=== PATIENT | female | born 1980 ===

== ENCOUNTER 2018-01-11 17:06 | Emergency (ER) | payer BC ==
[2018-01-11 18:01] VITALS: BMI 37.8
[2018-01-11 18:28] LABS: ALB/GLOB RATIO 0.8 (1.0-2.1); ALBUMIN 2.8 g/dL (3.5-5.0); ALT/SGPT 21 U/L (9-52); AST/SGOT 34 U/L (14-36); BLOOD UREA NITROGEN 14 mg/dl (7-17); CALCIUM 8.9 mg/dL (8.4-10.2); GFR NON-AFRICAN AMERICAN > 60
[2018-01-11 18:33] LABS: BASO % 0.4 % (0.0-2.0); EOS # 0.1 K/uL (0.0-0.7); EOS % 1.7 % (0.0-4.0); HEMOGLOBIN 10.9 g/dL (12.0-16.0); LYMPH # 1.2 K/uL (1.0-4.3); MEAN CELL VOLUME 84.2 fl (81.0-99.0); MEAN CORPUSCULAR HEMOGLOBIN 27.5 pg (27.0-31.0); MEAN CORPUSCULAR HGB CONC 32.7 g/dL (33.0-37.0); MEAN PLATELET VOLUME 9.2 fl (7.2-11.7); MONO # 0.6 K/uL (0.0-0.8); MONO % 10.2 % (0.0-10.0); NEUT # 4.1 K/uL (1.8-7.0); NEUT % 67.7 % (50.0-75.0); NRBC % 0.1 % (0.0-0.0); RBC 3.97 Mil/uL (3.80-5.20); RED CELL DISTRIBUTION WIDTH 16.1 % (11.5-14.5); WHITE BLOOD COUNT 6.1 K/uL (4.8-10.8)
[2018-01-11] MEDS ORDERED: Betamethasone Soluspan 30 mg/5mL Inj Susp IM ONE (20:20)
[2018-01-12 09:50] VITALS: BP 141/75; PULSE 86; RESP 18; TEMP 98; O2SAT 100
== END 2018-01-11 21:20 | disposition home or self-care (01) ==
LOC: H.EROB2 17:06
DX: O26.93 Pregnancy related conditions, unspecified, third trimester (principal); I10 Essential (primary) hypertension; Z3A.29 29 weeks gestation of pregnancy
CPT/HCPCS: 80053; 82550; 82570; 84156; 85025; 96372; 99283; J0702

== ENCOUNTER 2018-01-12 20:24 | Emergency (ER) | payer BC ==
[2018-01-11 18:01] VITALS: BMI 37.8
[2018-01-12] MEDS ORDERED: Betamethasone Soluspan 30 mg/5mL Inj Susp IM ONE (20:40)
[2018-01-12 23:21] LABS: URINE 24 HOUR TOTAL PROTEIN 4587.5 mg/24hr (42-225)
--- NOTE | 2018-01-13 09:37 | OBADHP ---
Datetime: 01/12/2018 23:30 Admit Comment, IP Provider: at 29 weeks and 3 days gestational age crease blood pressure. [place] ent without complaints at this time. Patient denies any headaches, changes in vision, abdominal pain. Patient denies any contractions, vaginal bleeding, leakage of fluids. Patient reports good mov ement. Past medical history presenting with first delivery Past surgical history denies Medications vitamins Obstetrical history 2 Social history denies tobacco, drugs, alcohol Labs: 24 hour urine protein approximately 4500 g protein Assessment: 29 weeks gestational age, mildly elevated blood pressures, elevated total protein in 24-hour urine collection Plan: Admit for observation Plan to repeat labs Continuous heart monitoring Discussed plan and all patient questions answered. IP Hx Assessment: The History has been Reviewed and is Current IP Adm Impression: , intrauterine IP Admit Plan: Admit to unit Datetime: 01/11/2018 17:58 Abdomen - PN: Normal Lungs - PN: Normal Heart - PN: Normal General - PN: Normal Vital Signs Provider: Reviewed IP Chief Complaint: Maternal discomfort; Other EGA AdmitDate IP: 29.1
[2018-01-15 14:26] VITALS: BP 158/92; PULSE 101; RESP 18; TEMP 98.3; O2SAT 99
== END 2018-01-12 21:20 | disposition home or self-care (01) ==
LOC: H.EROB2 20:24 → H.L&D 01-13 10:14
DX: O26.93 Pregnancy related conditions, unspecified, third trimester (principal); I10 Essential (primary) hypertension; Z3A.29 29 weeks gestation of pregnancy; Z23 Encounter for immunization
CPT/HCPCS: 84156; 96372; 99281; J0702